=== PATIENT | female | born 1975 | race Caucasian/White ===

== ENCOUNTER 2017-04-04 16:49 | Emergency (ER) | payer SELFPAY ==
[~2017-04-04] VITALS: Ht 172.7 cm; Wt 67.3 kg
[~2017-04-04 16:49] MED LIST: FLEXERIL10 MG PO; NAPROSYN500 MG PO
[2017-04-04 17:45] LABS: ADD MIUA? NO; BILIRUBIN NEGATIVE; BLOOD NEGATIVE; COLOR STRAW ((YELLOW)); GLUCOSE (STRIP) NEGATIVE; KETONES NEGATIVE; LEUKOCYTES NEGATIVE; NITRITE NEGATIVE; PROTEIN (STRIP) NEGATIVE; SPECIFIC GRAVITY 1.005 (1.000-1.030); UCUL ADDED? NO; UROBILINOGEN 0.2 MG/DL (0.2-1.0)
[2017-04-04 17:48] LABS: INTERNAL CONTROL VALID? YES
[2017-04-04 18:35] LABS: CHLORIDE 105 mEq/L (99-109); SODIUM 135 mEq/L (136-147)
[2017-04-04 18:36] LABS: GLUCOSE 88 mg/dL (70-99)
[2017-04-04 18:38] LABS: ANION GAP 10 MEQ/L (2-14)
[2017-04-04 18:40] LABS: GFR ESTIMATE (CALCULATED) > 59 mL/min/
[2017-04-04 18:41] LABS: UREA NITROGEN (BUN) 11 mg/dL (9-23)
[2017-04-04 18:42] LABS: HEMATOCRIT 32.7 % (36.0-46.0); MCH 22.1 PG (29.0-34.0); MCHC 30.6 G/DL (30.0-36.0); MCV 72.3 FL (83-99); MEAN PLAT.VOLUME 9.3 uM^3 (9.5-12.4); PLATELET COUNT 346 K/uL (156-360); RBC DIS.WIDTH-CV 16.7 % (11.8-14.6); RBC DIS.WIDTH-SD 42.8 % (39-53); RED BLOOD COUNT 4.52 M/uL (3.80-5.20); WHITE BLOOD COUNT 8.5 K/uL (4.1-10.2)
[2017-04-04] MEDS ORDERED: BACTRIM,SEPT1 TABLET PO (21:27)
[2017-04-04] MEDS ORDERED: PYRIDIUM100 MG PO (21:27)
[2017-04-04 21:38] VITALS: BP 102/63
[2017-04-05] MEDS ORDERED: FLEXERIL5 MG PO (18:42)
[2017-04-05] MEDS ORDERED: NORCO 5/3251 TABLET PO (18:42)
[2017-04-05] MEDS ORDERED: PREDNISONE50 MG PO (18:42)
== END 2017-04-04 21:40 | disposition home or self-care (01) ==
LOC: EME 16:49
PROVIDERS: Physician Assistant
DX: R10.9 Unspecified abdominal pain (principal); R30.0 Dysuria
CPT/HCPCS: 74176; 80048; 81003; 84703; 85027; 99281; 99285

== ENCOUNTER 2017-04-05 15:22 | Emergency (ER) | payer SELFPAY ==
[~2017-04-05] VITALS: Ht 172.7 cm; Wt 66.7 kg
[~2017-04-05 15:22] MED LIST changes: +BACTRIM,SEPT1 TABLET PO; +PYRIDIUM100 MG PO
[2017-04-05 17:13] LABS: CHLORIDE 105 mEq/L (99-109); SODIUM 136 mEq/L (136-147)
[2017-04-05 17:15] LABS: GLUCOSE 103 mg/dL (70-99)
[2017-04-05 17:17] LABS: ANION GAP 9 MEQ/L (2-14); TOTAL BILIRUBIN 0.7 mg/dL (0.0-1.0)
[2017-04-05 17:19] LABS: HEMATOCRIT 33.6 % (36.0-46.0); MCH 22.2 PG (29.0-34.0); MCHC 30.4 G/DL (30.0-36.0); MEAN PLAT.VOLUME 9.3 uM^3 (9.5-12.4); PLATELET COUNT 358 K/uL (156-360); RBC DIS.WIDTH-CV 16.7 % (11.8-14.6); RBC DIS.WIDTH-SD 43.2 % (39-53); WHITE BLOOD COUNT 12.1 K/uL (4.1-10.2)
[2017-04-05 17:19] LABS: ALKALINE PHOSPHATASE 56 IU/L (3-129); GFR ESTIMATE (CALCULATED) > 59 mL/min/
[2017-04-05 17:20] LABS: UREA NITROGEN (BUN) 11 mg/dL (9-23)
[2017-04-05 17:23] LABS: LIPASE 10 U/L (1.0-51.0)
[2017-04-05 17:31] LABS: QUANTITATIVE HCG < 4.0 MIU/ML
[2017-04-05] MEDS ORDERED: NORCO 5/3251 TABLET PO (18:42)
[2017-04-05] MEDS ORDERED: FLEXERIL5 MG PO (18:42)
[2017-04-05] MEDS ORDERED: PREDNISONE50 MG PO (18:42)
[2017-04-05 18:59] VITALS: BP 105/69
== END 2017-04-05 19:00 | disposition home or self-care (01) ==
LOC: EME 15:22
PROVIDERS: Physician Assistant
DX: M54.5 Low back pain (principal)
CPT/HCPCS: 80053; 81003; 83690; 84702; 85027; 99281; 99283; J2270